=== PATIENT | female | born 1970 | race Caucasian/White ===

== ENCOUNTER 2020-04-19 15:37 | Emergency (ER) | payer SELFPAY ==
[~2020-04-19] VITALS: Ht 170.2 cm; Wt 104.5 kg
[~2020-04-19 15:37] MED LIST: AMLO2.5T2; ATORVASTATIN CALCIUM; LEVO125C; LEXAPRO10 MG; OMEP40CA45; TRIA1CAP3
[2020-04-19] MEDS ORDERED: 0.9 % SODIUM CHLORIDE 10 ML DISP.SYRIN. IV PRN (16:00)
[2020-04-19] MEDS ORDERED: DEXAMETHASONE SOD PHOS 10 MG/ML VIAL. IV ONE (16:00)
[2020-04-19 16:32] LABS: BASO % 1 % (0-3); EOS # 0.2 x10^3/uL (0.0-0.7); EOS % 4 % (0-3); HEMATOCRIT 42.2 % (36.0-47.0); LYMPH # 1.9 x10^3/uL (1.0-4.8); LYMPH % 48 % (24-48); MEAN CORPUSCULAR HEMOGLOBIN 28 pg (25-35); MEAN CORPUSCULAR HGB CONC 33 g/dL (31-37); MEAN CORPUSCULAR VOLUME 85 fL (79-100); MONO # 0.4 x10^3/uL (0.0-1.1); MONO % 9 % (0-9); NEUT # 1.6 x10^3uL (1.8-7.7); NEUT % 39 % (31-73); PLATELET COUNT 210 x10^3/uL (140-400); RED BLOOD COUNT 4.99 x10^6/uL (3.50-5.40); RED CELL DISTRIBUTION WIDTH 14.4 % (11.5-14.5)
--- NOTE | 2020-04-19 16:35 | RAD ---
EXAM: Chest, single view. HISTORY: Shortness of air. Covid 19. COMPARISON: None. FINDINGS: A frontal view of the chest is obtained. There is no infiltrate, pleural effusion or pneumo thorax. The heart is normal in size. IMPRESSION: No acute pulmonary finding. Electronically signed by: Yeny Mcleod MD (04/19/2020 4:32 PM) [id number]
[2020-04-19 16:43] LABS: CALCIUM 8.5 mg/dL (8.5-10.1); CREATININE 1.2 mg/dL (0.6-1.0); GFR 47.7; POTASSIUM 3.5 mmol/L (3.5-5.1)
--- NOTE | 2020-04-19 16:48 | EKG ---
[facility] ED [facility] [address] [place] [id number] Test Date: 2020-04-19 Test Time: 16:15:57 Pat Name: CITLALY LOPEZ Department: Room: Gender: F Tableau Developer: : 1970 Requested By: HAO MIRANDA Order Number: [id number] Reading MD: Measurements Intervals [place] Rate: 72 P: 29 SD: 172 QRS: 18 QRSD: 90 T: 58 QT: 392 QTc: 431 Interpretive Statements SINUS RHYTHM NORMAL ECG RI6.02 No previous ECG available for comparison
[2020-04-19 16:59] LABS: ALBUMIN 3.9 g/dL (3.4-5.0); ALBUMIN/GLOBULIN RATIO 1.2 (1.0-1.7); TOTAL BILIRUBIN 0.5 mg/dL (0.2-1.0); TOTAL PROTEIN 7.1 g/dL (6.4-8.2)
[2020-04-19 17:44] VITALS: BP 117/73
[2020-04-19] MEDS ORDERED: PRED50TA PO (17:49)
--- NOTE | 2020-04-19 17:49 | PHYS DOC ---
Past History Past Medical History: Asthma, Hypertension, Hyperthyroid, Hypothyroid, Migraines Additional Past Medical Histor: SJOGRENS, GASTROPARESIS Past Surgical History: Hysterectomy, Other Additional Past Surgical Histo: BLADDER, CARDIAC CATH Smoking: Non-smoker Alcohol Use: None Drug Use: None Adult General Chief Complaint Chief Complaint: SHORTNESS OF BREATH HPI HPI Patient is a 50-year-old female with history of asthma, hypertension, hypothyroidism, presenting today complaining of shortness of breath and chest tightness that began on Tuesday and after being diagnosed with COVID-19. Patient denies any fever. Denies any unusual cough or congestion. She states she has been using her asthma inhaler with no relief. Review of Systems Review of Systems Constitutional: Denies fever or chills [] Eyes: Denies change in visual acuity, redness, or eye pain [] HENT: Denies nasal congestion or sore throat [] Respiratory: Reports shortness of breath, chest tightness Cardiovascular: No additional information not addressed in HPI [] GI: Denies abdominal pain, nausea, vomiting, bloody stools or diarrhea [] : Denies dysuria or hematuria [] Musculoskeletal: Denies back pain or joint pain [] Integument: Denies rash or skin lesions [] Neurologic: Denies headache, focal weakness or sensory changes [] All other systems were reviewed and found to be within normal limits, except as documented in this note. Current Medications Current Medications Current Medications Medications (Trade) Dose Ordered Sig/Neal Start Time Stop Time Status Last Admin Dose Admin Dexamethasone Sodium Phosphate (Decadron) 10 mg 1X ONCE 04/19/20 16:00 04/19/20 16:01 DC 04/19/20 16:09 10 MG Sodium Chloride (Normal Saline Flush) 10 ml QSHIFT PRN 04/19/20 16:00 Allergies Allergies Allergies Coded Allergies Type Severity Reaction Last Updated Verified Penicillins Allergy Unknown 04/20/13 Yes erythromycin base Adverse Reaction Unknown 12/13/13 Yes Physical Exam Physical Exam Constitutional: Well developed, well nourished, no acute distress, non-toxic appearance. [] HENT: Normocephalic, atraumatic, bilateral external ears normal, oropharynx moist, no oral exudates, nose normal. [] Eyes: PERRLA, EOMI, conjunctiva normal, no discharge. [] Neck: Normal range of motion, no tenderness, supple, no stridor. [] Cardiovascular:Heart rate regular rhythm, no murmur [] Lungs & Thorax: Bilateral breath sounds clear to auscultation [] Abdomen: Bowel sounds normal, soft, no tenderness, no masses, no pulsatile masses. [] Skin: Warm, dry, no erythema, no rash. [] Back: No tenderness, no CVA tenderness. [] Extremities: No tenderness, no cyanosis, no clubbing, ROM intact, no edema. [] Neurologic: Alert and oriented X 3, normal motor function, normal sensory function, no focal deficits noted. [] Psychologic: Affect normal, judgement normal, mood normal. [] Current Patient Data Vital Signs Vital Signs Date Time Temp Pulse Resp B/P (MAP) Pulse Ox O2 Delivery O2 Flow Rate FiO2 04/19/20 15:38 98.3 81 20 138/96 (110) 96 Room Air Lab Results Laboratory Tests Test 04/19/20 15:53 04/19/20 16:06 D-Dimer (Sherice) 0.47 mg/L (0.00-0.50) White Blood Count 4.0 x10^3/uL (4.0-11.0) Red Blood Count 4.99 x10^6/uL (3.50-5.40) Hemoglobin 14.0 g/dL (12.0-15.5) Hematocrit 42.2 % (36.0-47.0) Mean Corpuscular Volume 85 fL (79-100) Mean Corpuscular Hemoglobin 28 pg (25-35) Mean Corpuscular Hemoglobin Concent 33 g/dL (31-37) Red Cell Distribution Width 14.4 % (11.5-14.5) Platelet Count 210 x10^3/uL (140-400) Neutrophils (%) (Auto) 39 % (31-73) Lymphocytes (%) (Auto) 48 % (24-48) Monocytes (%) (Auto) 9 % (0-9) Eosinophils (%) (Auto) 4 % (0-3) H Basophils (%) (Auto) 1 % (0-3) Neutrophils # (Auto) 1.6 x10^3uL (1.8-7.7) L Lymphocytes # (Auto) 1.9 x10^3/uL (1.0-4.8) Monocytes # (Auto) 0.4 x10^3/uL (0.0-1.1) Eosinophils # (Auto) 0.2 x10^3/uL (0.0-0.7) Basophils # (Auto) 0.0 x10^3/uL (0.0-0.2) Prothrombin Time 9.6 SEC (9.4-11.4) Prothrombin Time INR 0.9 (0.9-1.1) Activated Partial Thromboplast Time 25 SEC (23-33) Sodium Level 142 mmol/L (136-145) Potassium Level 3.5 mmol/L (3.5-5.1) Chloride Level 103 mmol/L (98-107) Carbon Dioxide Level 29 mmol/L (21-32) Anion Gap 10 (6-14) Blood Urea Nitrogen 14 mg/dL (7-20) Creatinine 1.2 mg/dL (0.6-1.0) H Estimated GFR (Cockcroft-Gault) 47.7 BUN/Creatinine Ratio 12 (6-20) Glucose Level 94 mg/dL (70-99) Lactic Acid Level 0.9 mmol/L (0.4-2.0) Calcium Level 8.5 mg/dL (8.5-10.1) Magnesium Level 2.0 mg/dL (1.8-2.4) Total Bilirubin 0.5 mg/dL (0.2-1.0) Aspartate Amino Transferase (AST) 41 U/L (15-37) H Alanine Aminotransferase (ALT) 59 U/L (14-59) Alkaline Phosphatase 89 U/L (46-116) Creatine Kinase 98 U/L (26-192) Creatine Kinase MB (Mass) 0.5 ng/mL (0.0-3.6) Creatine Kinase MB Relative Index 0.5 % (0-4) Troponin I Quantitative < 0.017 ng/mL (0-0.055) KB-Xwp-A-Type Natriuretic Peptide 21 pg/mL (0-124) Total Protein 7.1 g/dL (6.4-8.2) Albumin 3.9 g/dL (3.4-5.0) Albumin/Globulin Ratio 1.2 (1.0-1.7) EKG EKG [] Radiology/Procedures Radiology/Procedures []PROCEDURE: PORTABLE CHEST 1V EXAM: Chest, single view. HISTORY: Shortness of air. Covid 19. COMPARISON: None. FINDINGS: A frontal view of the chest is obtained. There is no infiltrate, pleural effusion or pneumothorax. The heart is normal in size. IMPRESSION: No acute pulmonary finding. Electronically signed by: Yeny Cruz MD (04/19/2020 4:32 PM) [id number] DICTATED AND SIGNED BY: YENY CRUZ MD DATE: 04/19/20 1632 CC: CIERRA PIEDRA MD; EMERGENCY,DEPARTMENT; HAO MIRANDA APRN ~MTH0 0 Heart Score Risk Factors: Risk Factors: DM, Current or recent (<one month) smoker, HTN, HLP, family history of CAD, obesity. Risk Scores: Risk Factors: DM, Current or recent (<one month) smoker, HTN, HLP, family history of CAD, obesity. Course & Med Decision Making Course & Med Decision Making Pertinent Labs and Imaging studies reviewed. (See chart for details) This is a 50-year-old female patient presented to the ED today complaining of chest tightness or shortness of breath that began on Tuesday after being diagnosed with COVID-19. Chest x-ray is negative for any acute findings, CBC CMP D-dimer EKG and troponin are negative O2 sats have been above 95% on room air, patient is afebrile. Discharge to home. Supportive care measures recommended Dragon Disclaimer Dragon Disclaimer This electronic medical record was generated, in whole or in part, using a voice recognition dictation system. Departure Departure: Impression: Primary Impression: Shortness of breath Additional Impression: Lab test positive for detection of COVID-19 virus Disposition: 01 MA HOME SELF CARE/HOMELESS Condition: STABLE Referrals: CIERRA PIEDRA MD (PCP) follow up next week Patient Instructions: Shortness of Breath, [id number] Additional Instructions: Your evaluated in the emergency room, your chest x-ray, EKG, labs are all negative for any acute findings. Continue using albuterol inhaler as needed for shortness of breath. Follow-up with your doctor next week, come back to the ED at any point symptoms worsen Scripts Prednisone (PREDNISONE) 50 Mg Tablet 1 TAB PO DAILY, #5 TAB Prov: HAO MIRANDA APRN 04/19/20 Problem QualHAO Terry APRN Apr 19, 2020 17:49
== END 2020-04-19 17:58 | disposition home or self-care (01) ==
LOC: ER 15:37
DX: U07.1 COVID-19 (principal); R06.02 Shortness of breath; R07.89 Other chest pain; J45.909 Unspecified asthma, uncomplicated; I10 Essential (primary) hypertension; E03.9 Hypothyroidism, unspecified; E05.90 Thyrotoxicosis, unspecified without thyrotoxic crisis or storm; G43.909 Migraine, unspecified, not intractable, without status migrainosus; Z90.710 Acquired absence of both cervix and uterus; Z98.890 Other specified postprocedural states; Z88.0 Allergy status to penicillin; Z88.1 Allergy status to other antibiotic agents
CPT/HCPCS: 36415; 71045; 80053; 82553; 83605; 83735; 83880; 84484; 85025; 85379; 85610; 85730; 87040; 93005; 96374; 99285; J1100

== ENCOUNTER → 2020-11-24 | Outpatient (CLI) | payer OTHER ==
[~2020-11-24] MED LIST changes: +IOHEXOL 240 MG/ML 50ML VIAL. ONE; +IOHEXOL 300 MG/ML 75 ML VIAL. IV ONE; -OMEP40CA45; +OMEP40CA7; +PRED50TA PO
--- NOTE | 2020-11-24 12:56 | RAD ---
CT ABDOMEN+PELVIS W History: RLQ PAIN Comparison: MRI 02/03/2015 Technique: After administration of intravenous contrast, helical CT of the abdomen and pelvis was per formed from the lung bases through the ischial tuberosities. Coronal and sagittal reconstructions wer e obtained. 75 mL of Omnipaque 300 were used. One or more of the following dose reduction techniques were utilized: Automated exposure control (AEC), Adjustment of mA and/or kV according to patient size , Use of iterative reconstruction technique such as ASiR, CT scan done according to ALARA and image g ently/image wisely Abdomen Findings: The visualized lung bases are clear. Right hepatic low attenuation lesion with nodular peripheral enhancement consistent with hemangioma, measuring 9.5 x 7.5 cm, previously 8.6 x 6.6 cm. Hepatic steatosis. Cholecystectomy. Pancreas, spleen , and bilateral adrenal glands are normal. Symmetric renal enhancement. There is no focal renal mass. There is no hydronephrosis. The visualized loops of small bowel are normal. The visualized loops of large bowel are normal. There is no evidence of bowel obstruction. Appendix is normal. There is no free fluid. There is no mesenteric or retroperitoneal adenopathy. The abdominal aorta is normal in caliber. Pelvis Findings: Urinary bladder is normal. No pelvic free fluid. There is no pelvic or inguinal adenopathy. There is no acute bony abnormality. IMPRESSION: 1. No acute findings. 2. Cholecystectomy. 3. Right hepatic 9.5 cm hemangioma has increased in size since 2014, previously measuring 8.6 cm. Electronically signed by: Arthur Manjarrez MD (11/24/2020 12:53 PM) [id number]
== END ==
LOC: CT 11:02
PROVIDERS: ATTEND Family Medicine
DX: K76.0 Fatty (change of) liver, not elsewhere classified (principal); D18.09 Hemangioma of other sites
CPT/HCPCS: 74177; Q9967

== ENCOUNTER → 2021-04-19 | Outpatient (CLI) | payer BC ==
[~2021-04-19] MED LIST changes: -IOHEXOL 240 MG/ML 50ML VIAL. ONE; -IOHEXOL 300 MG/ML 75 ML VIAL. IV ONE
--- NOTE | 2021-04-19 12:03 | RAD ---
EXAM: PA and Lateral Views of the Chest DATE: 04/19/2021 11:50 AM INDICATION: Reason: COUGH / Spl. Instructions: / History: COMPARISON: No Prior FINDINGS: The heart is not enlarged. Mediastinal and hilar contours are normal. No focal parenchymal airspace opacity. No pleural effusion or pneumothorax. IMPRESSION: 1. No radiographic evidence for acute cardiopulmonary process. Electronically signed by: Robin Núñez MD (04/19/2021 12:01 PM) RENEE
== END ==
LOC: RAD 11:42
PROVIDERS: ATTEND Nurse Practitioner Family
DX: R05.9 Cough, unspecified (principal)
CPT/HCPCS: 71046

== ENCOUNTER → 2021-07-17 | Outpatient (CLI) | payer OTHER ==
--- NOTE | 2021-07-17 09:24 | RAD ---
EXAM: Lumbar spine, 3 views. HISTORY: Pain. Disability. COMPARISON: None. FINDINGS: 3 views of the lumbar spine are obtained. There are hypoplastic T12 ribs. The L5 vertebral segment is partially sacralized and there is a rudimentary L5-S1 disc. This is a normal variant. The sacralized L5 transverse processes pseudoarticulating with the underlying sacrum. There is no listhes is. The vertebral bodies are normal in height. There is minimal multilevel endplate remodeling. There are incidental cholecystectomy clips. IMPRESSION: 1. Hypoplastic T12 ribs and transitional lumbosacral segment, a normal variant. 2. Minimal multilevel endplate remodeling. Electronically signed by: Yeny Mcleod MD (07/17/2021 9:22 AM) [id number]
== END ==
LOC: RAD 08:47
PROVIDERS: ATTEND Family Medicine
DX: Z02.71 Encounter for disability determination (principal); Q06.1 Hypoplasia and dysplasia of spinal cord; Z90.49 Acquired absence of other specified parts of digestive tract
CPT/HCPCS: 72100